=== PATIENT | female | born 1955 | race African-American/Black ===

== ENCOUNTER 2016-08-01 18:07 | Inpatient (IN) | payer MEDICARE, OTHER ==
[~2016-08-01] VITALS: Ht 172.7 cm; Wt 122.5 kg
[~2016-08-01 18:07] MED LIST: AMLODIPINE BES2.5 MG ORAL; ASPIR 8181 MG ORAL; ASPIRIN81 MG ORAL; BYSTOLIC 10MG10 MG ORAL; CALCITRIOL1 MCG/1 ML IV; COLACE100 MG ORAL; HUMALOG100 UNIT/4 SUBQ; LACTULOSE20 GM/301 ORAL; LANTUS5 UNITS SUBQ; LOSARTAN POTASS25 MG ORAL; NORCO 10/3251 EA ORAL; NORCO 5-325 TA1 EACH ORAL
[2016-08-01] MEDS ORDERED: Morphine Sulfate 4mg/ml Inj IVP ONE ×2 (18:15→19:00)
--- NOTE | 2016-08-01 18:35 | Emergency Room Report ---
History of Present Illness General Chief Complaint: Multiple Trauma/Fall Source: Patient Present Illness HPI The patient woke up on the floor after falling out of bed. She was sleeping when this happened. She was unable to move about. Her medics were finally summoned. She has chronic pain in her knees however there were tender at this time after falling on them. She lives at home. The patient has a history of gout and had been treated with prednisone in the past. She is allergic to gabapentin and other medications. She denies any localizing weakness at this time her headache. She did not hit her head. She denies any nausea vomiting or diarrhea. She had a dialysis catheter placed years ago. She did not need of dialysis. This was precautionary. Her doctor is dialysis doctor. Allergies: Coded Allergies: ALLOPURINOL (Verified Allergy, Severe, rash,itching, 12/12/14) GABAPENTIN (Verified Allergy, Severe, rash,itching, 12/12/14) LISINOPRIL (Verified Allergy, Intermediate, Rash, 12/11/14) Patient History Past Medical History: see triage record Past Surgical History: other - fistula Social History: Denies: alcohol use Social History Narrative lives at home Now: No Reviewed Nursing Documentation: PMH: Agreed, PSxH: Agreed Nursing Documentation-PMH Hx Cardiac Problems: Yes Hx Hypertension: Yes Hx Diabetes: Yes Hx Cancer: No Hx Gastrointestinal Problems: Yes Hx Neurological Problems: Yes Hx Peripheral Neuropathy: Yes Review of Systems All Other Systems: negative except mentioned in HPI Physical Exam Vital Signs Date Time Temp Pulse Resp B/P Pulse Ox O2 Delivery O2 Flow Rate FiO2 08/01/16 17:58 92 16 152/86 98 Room Air Sp02 EP Interpretation: reviewed, normal General Appearance: well appearing, no apparent distress, GCS 15, obese Head: normocephalic, atraumatic Eyes: bilateral eye EOMI, bilateral eye PERRL, bilateral eye normal inspection ENT: moist mucus membranes Neck: full range of motion, supple, no bony tend Respiratory: chest non-tender, lungs clear, normal breath sounds Cardiovascular #1: regular rate, rhythm Cardiovascular #2: 2+ radial (R) Gastrointestinal: normal inspection, normal bowel sounds, non tender, no mass, non-distended, overweight Musculoskeletal: digits/nails normal, swelling, other - bilateral knee pain with palpation and any movement - ligaments stable, tender Neurologic: alert, oriented x3, motor strength/tone normal, DTRs symmetric, sensory intact, speech normal Psychiatric: depressed affect Skin: normal color, other - tophi Medical Decision Making Diagnostic Impression: Primary Impression: Acute on chronic renal failure Additional Impressions: Knee contusion Qualified Codes: S80.01XA - Contusion of right knee, initial encounter Contusion, knee Qualified Codes: S80.02XA - Contusion of left knee, initial encounter Tophaceous gout UTI (urinary tract infection) Qualified Codes: N30.00 - Acute cystitis without hematuria DM renal manif type II ER Course Patient post fall out of bed and unable to get up. Prior weakness and gouty arthritis. Ddx: fx, contusion, polymyalgia rheumatica, strain, gout, occult infection, deconditioning, rhabdomyolysis amongst others. Emergent evaluation with labs, EKG, x-rays. Treatment with analgesia and hydration. Patient unable to ambulate and will need admission and placement. Labs c/w acute worsening of renal failure. Treat high K with keyexelate. May need dialysis (K and low bicarb). Prior creat high 2's. No fractures but still unable to ambulate. Pain improved with analgesia. Antibiotics begun for UTI. Admit Dr. Wade med. Laboratory Tests Test 08/01/16 18:30 08/01/16 19:20 White Blood Count 16.5 K/UL (4.8-10.8) H Red Blood Count 3.61 M/UL (4.20-5.40) L Hemoglobin 9.5 G/DL (12.0-16.0) L Hematocrit 31.3 % (37.0-47.0) L Mean Corpuscular Volume 87 FL (80-99) Mean Corpuscular Hemoglobin 26.4 PG (27.0-31.0) L Mean Corpuscular Hemoglobin Concent 30.4 G/DL (32.0-36.0) L Red Cell Distribution Width 14.2 % (11.6-14.8) Platelet Count 107 K/UL (150-450) L Mean Platelet Volume 8.6 FL (6.5-10.1) Neutrophils (%) (Auto) 79.7 % (45.0-75.0) H Lymphocytes (%) (Auto) 10.7 % (20.0-45.0) L Monocytes (%) (Auto) 8.2 % (1.0-10.0) Eosinophils (%) (Auto) 0.1 % (0.0-3.0) Basophils (%) (Auto) 1.3 % (0.0-2.0) Erythrocyte Sedimentation Rate 50 MM/HR (0-30) H Prothrombin Time 12.0 SEC (9.30-11.50) H Prothrombin Time INR 1.2 (0.9-1.1) H PTT 21 SEC (23-33) L Sodium Level 136 mEQ/L (135-145) Potassium Level 5.6 mEQ/L (3.4-4.9) H Chloride Level 100 mEQ/L (98-107) Carbon Dioxide Level 17 mEQ/L (20-30) L Anion Gap 19 (5-15) H Blood Urea Nitrogen 51 mg/dL (7-23) H Creatinine 4.5 mg/dL (0.5-0.9) H Estimate Glomerular Filtration Rate 12.0 mL/min (>60) Glucose Level 195 mg/dL (74-106) H Calcium Level 9.1 mg/dL (8.6-10.2) Total Bilirubin 0.9 mg/dL (0.0-1.2) Aspartate Amino Transferase (AST) 72 U/L (5-40) H Alanine Aminotransferase (ALT) 19 U/L (3-33) Alkaline Phosphatase 86 U/L (35-104) Total Protein 6.7 g/dL (6.6-8.7) Albumin 2.5 g/dL (3.5-5.2) L Globulin 4.2 g/dL Albumin/Globulin Ratio 0.5 (1.0-2.7) L Urine Color Yellow Urine Appearance Slightly cloudy Urine pH 5 (4.5-8.0) Urine Specific [place] 1.010 (1.005-1.035) Urine Protein 3+ (NEGATIVE) H Urine Glucose (UA) Negative (NEGATIVE) Urine Ketones 1+ (NEGATIVE) H Urine Occult Blood 5+ (NEGATIVE) H Urine Nitrite Negative (NEGATIVE) Urine Bilirubin Negative (NEGATIVE) Urine Urobilinogen Normal MG/DL (0.0-1.0) Urine Leukocyte Esterase 3+ (NEGATIVE) H Urine RBC 0-2 /HPF (0 - 2) Urine WBC 30-40 /HPF (0 - 2) H Urine Squamous Epithelial Cells Few /LPF (NONE/OCC) Urine Bacteria Many /HPF (NONE) H EKG Diagnostic Results Rate: normal Rhythm: NSR ST Segments: no acute changes - LVH Rhythm Strip Diag. Results EP Interpretation: yes Rhythm: NSR, no PVC's, no ectopy Chest X-Ray Diagnostic Results EP Interpretation: Yes Findings: no consolidation, no effusion, no pneumothorax, other - inc cor Number of Views: 1 Last Vital Signs Date Time Temp Pulse Resp B/P Pulse Ox O2 Delivery O2 Flow Rate FiO2 08/01/16 17:58 92 16 152/86 98 Room Air Status: improved Disposition: ADMITTED INPATIENT Condition: Serious Vahe Coronado M.D. Aug 01, 2016 18:35
[2016-08-01] MEDS ORDERED: Morphine Sulfate 4mg/ml Inj IM ONE (18:45)
[2016-08-01 18:55] LABS: BASOPHILS % (AUTO) 1.3 % (0.0-2.0); EOSINOPHILS % (AUTO) 0.1 % (0.0-3.0); LYMPHOCYTES % (AUTO) 10.7 % (20.0-45.0); MEAN CORPUSCULAR HEMOGLOBIN 26.4 PG (27.0-31.0); MEAN CORPUSCULAR HGB CONC 30.4 G/DL (32.0-36.0); MEAN CORPUSCULAR VOLUME 87 FL (80-99); MEAN PLATELET VOLUME 8.6 FL (6.5-10.1); MONOCYTES % (AUTO) 8.2 % (1.0-10.0); NEUTROPHILS % (AUTO) 79.7 % (45.0-75.0); PLATELET COUNT 107 K/UL (150-450); RED BLOOD COUNT 3.61 M/UL (4.20-5.40); RED CELL DISTRIBUTION WIDTH 14.2 % (11.6-14.8); WHITE BLOOD COUNT 16.5 K/UL (4.8-10.8)
[2016-08-01 19:01] LABS: INR 1.2 (0.9-1.1)
[2016-08-01 19:08] LABS: ALBUMIN/GLOBULIN RATIO 0.5 (1.0-2.7); CALCIUM 9.1 mg/dL (8.6-10.2); CREATININE 4.5 mg/dL (0.5-0.9); POTASSIUM 5.6 mEQ/L (3.4-4.9); TOTAL PROTEIN 6.7 g/dL (6.6-8.7)
[2016-08-01 19:49] VITALS: BP 152/75
[2016-08-01] MEDS ORDERED: PREDNISONE2.5 MG ORAL (19:55)
[2016-08-01 19:59] LABS: ERYTHROCYTE SEDIMENTATION RATE 50 MM/HR (0-30)
[2016-08-01 20:05] LABS: APPEARANCE,URINE SLIGHTLY CLOUDY; KETONES,URINE 1+ (NEGATIVE); LEUKOCYTE ESTERASE ,URINE 3+ (NEGATIVE); NITRITE,URINE NEGATIVE (NEGATIVE); PH,URINE 5 (4.5-8.0); PROTEIN,URINE 3+ (NEGATIVE); UROBILINOGEN,URINE NORMAL MG/DL (0.0-1.0)
[2016-08-01] MEDS ORDERED: HYDROmorphone 1mg/ml Carpuject IVP ONE (20:15)
[2016-08-01] MEDS ORDERED: Sodium Polystyrene Sulfonate 15gm Powder ORAL ONE (21:15)
[2016-08-01 21:31] LABS: RBC,URINE 0-2 /HPF (0 - 2)
[2016-08-01 21:32] LABS: BACTERIA,URINE MANY /HPF; SQUAMOUS EPITHELIAL CELL,UR FEW /LPF (NONE/OCC); WBC,URINE 30-40 /HPF (0 - 2)
[2016-08-01 22:02] VITALS: BP 132/80
[2016-08-01] MEDS ORDERED: Nitroglycerin Subl 0.4mg tab (Bottle Of 25) SL PRN (22:30)
[2016-08-01] MEDS ORDERED: Acetaminophen 650 MG SUPP RECTAL PRN ×2 (22:30)
[2016-08-01] MEDS ORDERED: Miralax 17gm pkt ORAL PRN (22:30)
[2016-08-01] MEDS ORDERED: Norco 10mg/325mg tab ORAL PRN (22:30)
[2016-08-01] MEDS ORDERED: Lactulose 20gm/30ml UDC ORAL PRN (22:30)
[2016-08-01] MEDS ORDERED: Norco 5mg/325mg tab ORAL PRN (22:30)
[2016-08-01] MEDS ORDERED: Zolpidem 5mg tab ORAL PRN (22:30)
[2016-08-01] MEDS ORDERED: cefTRIAXone 1 GM in NS 55 ML IVPB ONE (22:45)
[2016-08-01 23:28] VITALS: BP 133/74
[2016-08-02] VITALS (9 sets, daily range): BP systolic 108–215; BP diastolic 60–120
[2016-08-02] MEDS: NovoLOG Insulin Flexpen SUBQ SCH ×4 (06:30→21:59)
[2016-08-02] MEDS ORDERED: PREDNISONE 1 MG ONE (08:46)
[2016-08-02] MEDS: Aspirin Baby 81mg ORAL SCH (08:48)
[2016-08-02] MEDS: Docusate 100mg tablet ORAL SCH ×2 (08:48→21:57)
[2016-08-02] MEDS ORDERED: PredniSONE 20mg tab ORAL SCH (09:00)
[2016-08-02] MEDS ORDERED: Losartan 25mg tab ORAL SCH (09:00)
--- NOTE | 2016-08-02 09:34 | Diagnostic Imaging Report ---
History: Pain. Technique: Frontal, lateral, and oblique views of the left knee are provided. Comparison: No prior study is available for comparison. Findings: Exam sensitivity is diminished due to patient's body habitus. There is no evidence of acute fracture or dislocation. Moderate prominence of the tibial spines with small marginal osteophytosis is compatible with mild left knee osteoarthritis. Impression: 1. No evidence of acute fracture or dislocation. 2. Mild left knee osteoarthritis.
[2016-08-02 10:43] LABS: CALCIUM 8.6 mg/dL (8.6-10.2); CREATININE 4.7 mg/dL (0.5-0.9); GLOMERULAR FILTRATION RATE 11.4 mL/min (>60); POTASSIUM 5.7 mEQ/L (3.4-4.9)
[2016-08-02] MEDS: Norco 10mg/325mg tab ORAL SCH ×3 (12:02→21:00)
[2016-08-02] MEDS ORDERED: Cefepime 1gm vial ONE (12:16)
[2016-08-02] MEDS ORDERED: Sodium Polystyrene Sulfonate 15gm Powder ONE (12:19)
[2016-08-02] MEDS: Cefepime HCl 1 GM in D5W 55 ML IVPB SCH (12:22)
--- NOTE | 2016-08-02 18:45 | Cardiology Report ---
APPROVED REPORT EKG Measurement Heart [id number] Normal sinus rhythm Moderate voltage criteria for LVH, may be normal variant Nonspecific ST and T wave abnormality Abnormal ECG
[2016-08-02] MEDS: Heparin 5000 units/ml inj SUBQ SCH (21:00)
[2016-08-02] MEDS: Levemir Flexpen SUBQ SCH (21:00)
--- NOTE | 2016-08-02 21:08 | History and Physical Report ---
DATE OF ADMISSION: 08/02/2016 CHIEF COMPLAINT AND REASON FOR HOSPITALIZATION: The patient admitted with hyperkalemia, azotemia, falls, and unable to walk. HISTORY OF PRESENT ILLNESS: The patient has been diabetic since 1996 insulin-dependent, history of obesity, gout, arthritis, and chronic kidney disease likely stage V. She states she has not had very much to eat or drink since three days prior to admission. She is increasingly weak and had a ground level fall at home and unable to get up and came to the emergency room. The patient has had hyperkalemia and azotemia. She is complaining of severe pain in the elbows and knees and unable to walk. Usually, she can walk to the bathroom and move about . PAST SURGICAL HISTORY: Left arm AV fistula, which failed right arm AV fistula and two section. MEDICATIONS: At home include amlodipine, aspirin, Bystolic, calcitriol, Colace, [place], insulin, lactulose, losartan, and prednisone. HABITS: She is a nondrinker and nonsmoker. SOCIAL HISTORY: She lives alone. She has a neighbor, who assists her. SYSTEM REVIEW: HEENT: Vision hearing is well-preserved. ENDOCRINE: History of obesity, diabetes, and hypothyroidism. PULMONARY: No asthma, TB, or chronic cough. CARDIAC: No angina or NV. There is a history of hypertension. GI: History of anorexia and poor oral intake the past few days and intermittent mild gastritis. GENITOURINARY: Denies dysuria or hematuria. Guallpa catheter was placed in the emergency room. MUSCULOSKELETAL: Gout and pain as above. NEUROLOGIC: No CVA, syncope, or seizures. PHYSICAL EXAMINATION: GENERAL: The patient is alert lady seen in the emergency room and moderately obese. VITAL SIGNS: Pulse 98, respirations 19, blood pressure 128/68, pulse oximetry 96% on room air, and temperature 98.2 degrees. HEENT: Sclerae are nonicteric. Ocular motions intact in all directions. Oral mucosa slightly dry. NECK: No adenopathy or thyroid enlargement. LUNGS: Clear. HEART: Regular rhythm. No murmur. ABDOMEN: Obese and soft. No organomegaly or tenderness. EXTREMITIES: Extremities show an AV fistula in the right upper arm. She has pain in the elbows, knees, and hands bilaterally. There is no hot joints ,but there is some hand deformities and arthritic changes in all of these joints. NEUROLOGIC: She is alert and oriented. Cranial nerves are intact. PERTINENT LABORATORIES: White count 16.5 and hemoglobin is 9.5. Sodium 138, potassium 5.7, BUN 15, and creatinine 4.7. Calcium 8.6. AST is 72. Urine shows a 30 to 40 white cells per high-power field and 3+ protein. IMPRESSION: 1. Ground-level fall. 2. Inability to ambulate. 3. gout. 4. Severe osteoarthritis. 5. Morbid obesity. 6. Hyperkalemia. 7. Chronic kidney disease stage V. 8. Dehydration . 9. Adult onset diabetes with diabetic nephropathy. 10. Pyuria likely urinary tract infection. 11. Failure to thrive due to these multiple medical problems. PLAN: The patient will be hydrated and treated for hyperkalemia and urinary tract infection. Pain management for gout . Physical therapy and occupational therapy. have to make a disposition and currently she is bedridden. Sourav Wade M.D. DR: Beatriz JOB#: [id number] CC:
[2016-08-03] VITALS (7 sets, daily range): BP systolic 105–143; BP diastolic 57–77
[2016-08-03] MEDS: Norco 10mg/325mg tab ORAL SCH ×6 (01:00→21:06)
[2016-08-03] MEDS: NovoLOG Insulin Flexpen SUBQ SCH ×4 (06:08→21:13)
[2016-08-03 08:25] LABS: ALBUMIN/GLOBULIN RATIO 0.5 (1.0-2.7); CALCIUM 8.4 mg/dL (8.6-10.2); GLOMERULAR FILTRATION RATE 10.7 mL/min (>60); PHOSPHORUS 4.2 mg/dL (2.5-4.8); POTASSIUM 4.9 mEQ/L (3.4-4.9); URIC ACID 11.1 mg/dL (3.0-7.5)
[2016-08-03 08:31] LABS: BASOPHILS % (AUTO) 0.3 % (0.0-2.0); EOSINOPHILS % (AUTO) 0.2 % (0.0-3.0); LYMPHOCYTES % (AUTO) 10.6 % (20.0-45.0); MEAN CORPUSCULAR HEMOGLOBIN 26.6 PG (27.0-31.0); MEAN CORPUSCULAR VOLUME 86 FL (80-99); MEAN PLATELET VOLUME 7.3 FL (6.5-10.1); MONOCYTES % (AUTO) 8.1 % (1.0-10.0); NEUTROPHILS % (AUTO) 80.7 % (45.0-75.0); PLATELET COUNT 148 K/UL (150-450); RED BLOOD COUNT 3.23 M/UL (4.20-5.40); RED CELL DISTRIBUTION WIDTH 14.5 % (11.6-14.8); WHITE BLOOD COUNT 14.1 K/UL (4.8-10.8)
--- NOTE | 2016-08-03 08:36 | Diagnostic Imaging Report ---
Clinical history: Chest pain. Technique: Portable AP chest radiograph was obtained. Comparison: 12/13/14. Findings: There is stable mild cardiomegaly with scattered interstitial opacities suggesting mild interstitial edema. Lung volumes are low. No focal consolidation is identified. There is no pleural effusion or pneumothorax. The bony thorax is unremarkable. Impression: 1. Mild cardiomegaly with probable mild interstitial edema. 2. Low lung volumes. No evidence of pneumonia.
--- NOTE | 2016-08-03 08:36 | Diagnostic Imaging Report ---
History: Pain. Technique: Frontal, lateral, and oblique views of the right knee are provided. Comparison: No prior study is available for comparison. Findings: Exam sensitivity is diminished due to patient's body habitus. There is no evidence of acute fracture or dislocation. Mild prominence of the tibial spines with small marginal osteophytosis is compatible with mild right knee osteoarthritis. A small effusion may be present. Impression: 1. No evidence of acute fracture or dislocation. 2. Suspected small effusion. Mild right knee osteoarthritis noted.
[2016-08-03] MEDS: PredniSONE 5mg tab ORAL SCH (08:37)
[2016-08-03] MEDS: Aspirin Baby 81mg ORAL SCH (08:37)
[2016-08-03] MEDS: Docusate 100mg tablet ORAL SCH ×2 (08:38→21:00)
[2016-08-03] MEDS: Heparin 5000 units/ml inj SUBQ SCH ×2 (09:00→20:57)
[2016-08-03] MEDS: Cefepime HCl 1 GM in D5W 55 ML IVPB SCH (11:55)
--- NOTE | 2016-08-03 15:45 | General Progress Note ---
Assessment/Plan Problem List: (1) Hyperkalemia ICD Codes: E87.5 - Hyperkalemia SNOMED: 58616390 (2) CKD (chronic kidney disease) stage 5, GFR less than 15 ml/min ICD Codes: N18.5 - Chronic kidney disease, stage 5 SNOMED: 126938585 (3) Pain ICD Codes: R52 - Pain, unspecified SNOMED: 57498040 (4) severe pain,gout (5) DM renal manif type II ICD Codes: E11.29 - DM renal manif type II SNOMED: 39946646 (6) Tophaceous gout ICD Codes: M1A.9XX1 - Tophaceous gout SNOMED: 25633231 (7) UTI (urinary tract infection) ICD Codes: N39.0 - Urinary tract infection, site not specified SNOMED: 84180303 (8) Metabolic acidosis ICD Codes: E87.2 - Acidosis SNOMED: 69536344 Assessment/Plan continue hydration iv cefepime, PT, bicitra, epogen Subjective Constitutional: Reports: fever, weakness HEENT: Reports: no symptoms Cardiovascular: Reports: no symptoms Respiratory: Reports: no symptoms Gastrointestinal/Abdominal: Reports: no symptoms Genitourinary: Reports: no symptoms Neurologic/Psychiatric: Reports: no symptoms Endocrine: Reports: no symptoms Allergies: Coded Allergies: ALLOPURINOL (Verified Allergy, Severe, rash,itching, 12/12/14) GABAPENTIN (Verified Allergy, Severe, rash,itching, 12/12/14) LISINOPRIL (Verified Allergy, Intermediate, Rash, 12/11/14) Subjective generalized pain Objective Last 24 Hour Vital Signs Date Time Temp Pulse Resp B/P Pulse Ox O2 Delivery O2 Flow Rate FiO2 08/03/16 12:00 99.0 93 20 143/69 98 Room Air 08/03/16 09:24 100.4 101 19 105/57 100 Room Air 08/03/16 08:39 101 105/57 08/03/16 07:35 100.4 102 18 129/74 98 Room Air 08/03/16 04:00 101.8 104 20 139/77 97 Room Air 08/03/16 00:00 100.0 100 20 126/73 96 Room Air 08/02/16 20:00 100.4 98 20 128/65 94 Room Air 08/02/16 19:00 98.3 08/02/16 16:54 98.2 99 14 126/72 95 Room Air 08/02/16 16:54 98.3 98 15 132/75 97 Room Air Intake and Output 08/02/16 08/03/16 19:00 07:00 Intake Total 480 ml Output Total 550 ml Balance -70 ml Intake Oral 480 ml Output Urine Total 550 ml # Voids 1 Laboratory Tests 08/03/16 06:42: White Blood Count 14.1H, Red Blood Count 3.23L, Hemoglobin 8.6L, Hematocrit 27.7L, Mean Corpuscular Volume 86, Mean Corpuscular Hemoglobin 26.6L, Mean Corpuscular Hemoglobin Concent 31.0L, Red Cell Distribution Width 14.5, Platelet Count 148L, Mean Platelet Volume 7.3, Neutrophils (%) (Auto) 80.7H, Lymphocytes (%) (Auto) 10.6L, Monocytes (%) (Auto) 8.1, Eosinophils (%) (Auto) 0.2, Basophils (%) (Auto) 0.3, Sodium Level 137, Potassium Level 4.9, Chloride Level 100, Carbon Dioxide Level 17L, Anion Gap 20H, Blood Urea Nitrogen 61H, Creatinine 5.0H, Estimat Glomerular Filtration Rate 10.7, Glucose Level 171H, Uric Acid 11.1H, Calcium Level 8.4L, Phosphorus Level 4.2, Total Bilirubin 0.6, Aspartate Amino Transf (AST/SGOT) 39, Alanine Aminotransferase (ALT/SGPT) 17, Alkaline Phosphatase 82, Total Protein 6.0L, Albumin 2.1L, Globulin 3.9, Albumin /Globulin Ratio 0.5L Height (Feet): 5 Height (Inches): 8.00 Weight (Pounds): 270 General Appearance: no apparent distress, alert, morbidly obese EENT: normal ENT inspection Neck: normal alignment, supple Cardiovascular: regular rhythm, regularly irregular Respiratory/Chest: normal breath sounds Abdomen: non tender Extremities: other - tophi hands, djd knees Edema: no edema noted Arm (L), no edema noted Arm (R), no edema noted Leg (L), no edema noted Leg (R), no edema noted Pedal (L), no edema noted Pedal (R), no edema noted Generalized Skin: normal pigmentation NEGRO SMITH Aug 03, 2016 15:45
[2016-08-03] MEDS: Sodium Citrate 30ml ORAL SCH ×2 (18:49→23:58)
[2016-08-03] MEDS: Epogen (for ESRD on dialysis) SUBQ SCH (21:06)
[2016-08-03] MEDS: Levemir Flexpen SUBQ SCH (21:15)
[2016-08-04] VITALS: BP 128/78
[2016-08-04] MEDS: Norco 10mg/325mg tab ORAL SCH ×6 (01:07→23:15)
[2016-08-04 04:00] VITALS: BP 118/62
[2016-08-04] MEDS: Sodium Citrate 30ml ORAL SCH ×4 (06:57→23:15)
[2016-08-04] MEDS: NovoLOG Insulin Flexpen SUBQ SCH ×4 (06:58→23:15)
[2016-08-04 08:00] VITALS: BP 142/75
[2016-08-04 08:22] LABS: BASOPHILS % (AUTO) 0.5 % (0.0-2.0); EOSINOPHILS % (AUTO) 0.3 % (0.0-3.0); LYMPHOCYTES % (AUTO) 14.1 % (20.0-45.0); MEAN CORPUSCULAR HEMOGLOBIN 26.5 PG (27.0-31.0); MEAN CORPUSCULAR HGB CONC 30.5 G/DL (32.0-36.0); MEAN CORPUSCULAR VOLUME 87 FL (80-99); MEAN PLATELET VOLUME 7.3 FL (6.5-10.1); NEUTROPHILS % (AUTO) 76.1 % (45.0-75.0); PLATELET COUNT 199 K/UL (150-450); RED BLOOD COUNT 4.01 M/UL (4.20-5.40); RED CELL DISTRIBUTION WIDTH 14.4 % (11.6-14.8); WHITE BLOOD COUNT 15.8 K/UL (4.8-10.8)
[2016-08-04 08:40] LABS: CALCIUM 9.1 mg/dL (8.6-10.2); CREATININE 5.5 mg/dL (0.5-0.9); GLOMERULAR FILTRATION RATE 9.6 mL/min (>60); POTASSIUM 4.9 mEQ/L (3.4-4.9)
[2016-08-04] MEDS: Aspirin Baby 81mg ORAL SCH (09:01)
[2016-08-04] MEDS: PredniSONE 5mg tab ORAL SCH (09:02)
[2016-08-04] MEDS: Docusate 100mg tablet ORAL SCH ×2 (09:02→23:15)
[2016-08-04] MEDS: Heparin 5000 units/ml inj SUBQ SCH ×2 (09:07→23:15)
[2016-08-04] MEDS ORDERED: Cefepime HCl 0.5 GM in D5W 55 ML IVPB SCH (12:00)
[2016-08-04 12:07] VITALS: BP 144/78
[2016-08-04 16:31] VITALS: BP 117/59
--- NOTE | 2016-08-04 19:54 | General Progress Note ---
Assessment/Plan Problem List: (1) Hyperkalemia ICD Codes: E87.5 - Hyperkalemia SNOMED: 98690507 (2) CKD (chronic kidney disease) stage 5, GFR less than 15 ml/min ICD Codes: N18.5 - Chronic kidney disease, stage 5 SNOMED: 199184122 (3) Pain ICD Codes: R52 - Pain, unspecified SNOMED: 35011344 (4) severe pain,gout (5) DM renal manif type II ICD Codes: E11.29 - DM renal manif type II SNOMED: 43825829 (6) Tophaceous gout ICD Codes: M1A.9XX1 - Tophaceous gout SNOMED: 06848540 (7) UTI (urinary tract infection) ICD Codes: N39.0 - Urinary tract infection, site not specified SNOMED: 04165627 (8) Metabolic acidosis ICD Codes: E87.2 - Acidosis SNOMED: 00198321 Assessment/Plan continue hydration iv cefepime,change to cefzolin for klebsiella, hallucinations will contact psych, PT, bicitra, epogen, may need dialysis Subjective Constitutional: Reports: other, weakness HEENT: Reports: no symptoms Cardiovascular: Reports: no symptoms Respiratory: Reports: no symptoms Gastrointestinal/Abdominal: Reports: no symptoms Genitourinary: Reports: burning, incontinence Neurologic/Psychiatric: Reports: pre-existing deficit Endocrine: Reports: no symptoms Hematologic/Lymphatic: Reports: anemia Allergies: Coded Allergies: ALLOPURINOL (Verified Allergy, Severe, rash,itching, 12/12/14) GABAPENTIN (Verified Allergy, Severe, rash,itching, 12/12/14) LISINOPRIL (Verified Allergy, Intermediate, Rash, 12/11/14) Subjective generalized pain Objective Last 24 Hour Vital Signs Date Time Temp Pulse Resp B/P Pulse Ox O2 Delivery O2 Flow Rate FiO2 08/04/16 16:31 98.2 87 19 117/59 97 Room Air 08/04/16 12:07 97.1 86 20 144/78 95 Room Air 08/04/16 09:03 95 142/75 08/04/16 08:00 96.9 95 20 142/75 99 Room Air 08/04/16 04:00 97.5 86 19 118/62 99 Room Air 08/04/16 00:00 97.5 82 22 128/78 98 Room Air 08/03/16 20:32 98.1 92 18 130/70 96 Room Air Intake and Output 08/03/16 08/04/16 19:00 07:00 Intake Total 1545 ml 615 ml Output Total 1 ml Balance 1545 ml 614 ml Intake Oral 240 ml 240 ml IV Total 1305 ml 375 ml Output Urine Total 1 ml # Voids 3 2 Laboratory Tests 08/04/16 07:25: White Blood Count 15.8H, Red Blood Count 4.01L, Hemoglobin 10.6L, Hematocrit 34.9L, Mean Corpuscular Volume 87, Mean Corpuscular Hemoglobin 26.5L, Mean Corpuscular Hemoglobin Concent 30.5L, Red Cell Distribution Width 14.4, Platelet Count 199, Mean Platelet Volume 7.3, Neutrophils (%) (Auto) 76.1H, Lymphocytes (%) (Auto) 14.1L, Monocytes (%) (Auto) 9.0, Eosinophils (%) (Auto) 0.3, Basophils (%) (Auto) 0.5, Sodium Level 142, Potassium Level 4.9, Chloride Level 100, Carbon Dioxide Level 18L, Anion Gap 24H, Blood Urea Nitrogen 70H, Creatinine 5.5H, Estimat Glomerular Filtration Rate 9.6, Glucose Level 128H, Calcium Level 9.1, Iron Level 11L, Total Iron Binding Capacity 194L, Percent Iron Saturation 6L, Unsaturated Iron Binding 183, Ferritin 305H Height (Feet): 5 Height (Inches): 8.00 Weight (Pounds): 270 General Appearance: no apparent distress, morbidly obese EENT: normal ENT inspection Neck: normal alignment Cardiovascular: normal rate Respiratory/Chest: lungs clear Abdomen: non tender Edema: moderate edema Neurologic: 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
[2016-08-04 20:00] VITALS: BP 127/70
[2016-08-04] MEDS: Levemir Flexpen SUBQ SCH (23:15)
[2016-08-05] VITALS: BP 120/85
[2016-08-05] MEDS: Norco 10mg/325mg tab ORAL SCH ×6 (01:00→20:38)
[2016-08-05 04:00] VITALS: BP 124/71
[2016-08-05] MEDS: NovoLOG Insulin Flexpen SUBQ SCH ×4 (06:21→20:52)
[2016-08-05] MEDS: Sodium Citrate 30ml ORAL SCH ×4 (06:27→22:13)
[2016-08-05 07:36] LABS: BASOPHILS % (AUTO) 0.7 % (0.0-2.0); EOSINOPHILS % (AUTO) 0.2 % (0.0-3.0); LYMPHOCYTES % (AUTO) 7.9 % (20.0-45.0); MEAN CORPUSCULAR HEMOGLOBIN 26.2 PG (27.0-31.0); MEAN CORPUSCULAR HGB CONC 30.5 G/DL (32.0-36.0); MEAN CORPUSCULAR VOLUME 86 FL (80-99); MEAN PLATELET VOLUME 6.9 FL (6.5-10.1); MONOCYTES % (AUTO) 7.9 % (1.0-10.0); NEUTROPHILS % (AUTO) 83.4 % (45.0-75.0); PLATELET COUNT 215 K/UL (150-450); RED BLOOD COUNT 3.48 M/UL (4.20-5.40); RED CELL DISTRIBUTION WIDTH 14.2 % (11.6-14.8); WHITE BLOOD COUNT 10.1 K/UL (4.8-10.8)
[2016-08-05 07:55] LABS: ALBUMIN/GLOBULIN RATIO 0.5 (1.0-2.7); CREATININE 5.5 mg/dL (0.5-0.9); GLOMERULAR FILTRATION RATE 9.6 mL/min (>60); PHOSPHORUS 6.5 mg/dL (2.5-4.8); POTASSIUM 4.7 mEQ/L (3.4-4.9); TOTAL PROTEIN 6.9 g/dL (6.6-8.7)
[2016-08-05 08:00] VITALS: BP 107/54
[2016-08-05] MEDS: PredniSONE 5mg tab ORAL SCH (08:49)
[2016-08-05] MEDS: Aspirin Baby 81mg ORAL SCH (08:50)
[2016-08-05] MEDS: Heparin 5000 units/ml inj SUBQ SCH ×2 (08:56→20:49)
[2016-08-05] MEDS ORDERED: Lidocaine 1% Plain 30 ml INJ ONE (09:00)
[2016-08-05] MEDS: Docusate 100mg tablet ORAL SCH ×2 (09:00→20:51)
[2016-08-05] MEDS ORDERED: Heparin 2000 units/Ns 1000ml INJ ONE (09:00)
[2016-08-05] MEDS ORDERED: Sodium Bicarbonate 8.4% 50ml Inj IV ONE (09:00)
[2016-08-05] MEDS: Nystatin Powder 100,000 units/gm 15gm TOPIC SCH ×3 (10:56→18:29)
[2016-08-05 12:00] VITALS: BP 134/64
[2016-08-05] MEDS ORDERED: Nystatin Powder 100,000 units/gm 15gm TOPIC SCH (14:30)
[2016-08-05 16:00] VITALS: BP 101/69
--- NOTE | 2016-08-05 16:20 | Wound Care Consultation ---
Wound Assessment Wound Assessment #1: Wound Present on Admission: Yes New Wound: No Status Change of Wound: No Wound Location Body Site Modif: upper, medial Wound Location Body Site: thigh Wound Type: blister - open and intact Marley Test: Does not Marley Wound Thickness: Partial Thickness Wound Drainage Description: Serosanguineous Wound Drainage Amount: Scant Wound Drainage Odor: None/Absent Wound General Appearance: Reddened Wound Assessment #2: Wound Number: #2 Wound Present on Admission: Yes New Wound: No Status Change of Wound: No Wound Location Body Site Modif: left, anterior Wound Location Body Site: toe - 2nd Wound Type: scab Marley Test: Does not Marley Edema Degree: 4+ marked deep indentation Wound Thickness: Full Thickness Wound Length: 1.0 Wound Width: 1.5 Wound Depth: utd Percent of Wound Bed Yellow/Wh: 100 Wound Drainage Amount: None Wound Drainage Odor: None/Absent Tissue Surrounding Wound: Indurated Wound General Appearance: Asymptomatic Wound Comment #1 Left and right upper inner thigh open and intact blisters #2 Left 2nd anterior toe with dry scab #3 Left and right elbow with dry scabs Recommendation -Local wound care per protocol for intact and open blisters -Keep clean and dry -Turn and reposition -Offload both heels -Elevate both legs -Optimize nutrition -Assess and f/u with MD for any changes DAY MARKS RN Aug 05, 2016 16:20
--- NOTE | 2016-08-05 17:24 | Consultation ---
History of Present Illness General Date patient seen: Aug 05, 2016 Time patient seen: 17:24 Chief Complaint: Multiple Trauma/Fall Referring physician: Dr. Wade Reason for Consultation: med amada Present Illness HPI 61 yo female with pmh of HTN, DM2 on insulin, CKD stage 5 (not on HDyt), anemia of chronic disese, tophaceous gout, morbit obesity who presnts with generlized weakness and fall. Pt states she woke up on the floor after falling out of bed. She was sleeping when this happened. She was unable to move about. Her medics were finally summoned. She has chronic pain in her knees but states pain increased after fall. Also c/o R arm pain after fall. She lives at home alone. She denies any localizing weakness at this time her headache. She did not hit her head. She denies any nausea vomiting or diarrhea. At baseline pt states she can walk only short distances like from her bedroom to her bathroom. Pt found to be hyperkalemic and azotemic. Pt was seen by nephrology an initiated on dialysis today. Pt noted to have periods of confusion, delusions. Psych was consulted. She was also found to have a UTI and started on cefepime. Cultures show Klebsiella. Allergies: Coded Allergies: ALLOPURINOL (Verified Allergy, Severe, rash,itching, 12/12/14) GABAPENTIN (Verified Allergy, Severe, rash,itching, 12/12/14) LISINOPRIL (Verified Allergy, Intermediate, Rash, 12/11/14) Medication History Scheduled Amlodipine Besylate* (Amlodipine Besylate*), 2.5 MG ORAL DAILY, (Reported) Aspirin* (Aspir 81*), 81 MG ORAL DAILY, (Reported) Aspirin* (Aspirin*), 81 MG ORAL DAILY, (Reported) Bysto (Bystolic), 10 MG ORAL BID, (Reported) Docusate Sodium* (Colace*), 200 MG ORAL QID, (Reported) Insulin Glargine (Lantus), 0 SUBQ BEDTIME, (Reported) Losartan Potassium* (Losartan Potassium*), 25 MG ORAL DAILY, (Reported) Prednisone* (Prednisone*), 2.5 MG ORAL DAILY, (Reported) Scheduled PRN Hydrocodone Bit/Acetaminophen 5-325* ([place] 5-325*), 1 TAB ORAL Q4H PRN for moderate pain, (Reported) Hydrocodone/Acetaminophen (Hydrocodon-Acetaminophn 10-325), 1 TAB ORAL Q4H PRN for For Pain, (Reported) Hydrocodone/Acetaminophen (Hydrocodon-Acetaminophn 10-325), 1 TAB ORAL for severe pain, (Reported) Lactulose (Lactulose*), 30 ML ORAL DAILY PRN for Constipation, (Reported) Miscellaneous Medications Calcitriol (Calcitriol*), 1 MCG IV, (Reported) Insulin Lispro (Humalog), 0 SUBQ, (Reported) Patient History History Provided By: Patient, Medical Record, PMD Healthcare decision maker N Resuscitation status Full Code Advanced Directive on File Past Medical/Surgical History Past Medical/Surgical History: (1) CKD (chronic kidney disease) stage 5, GFR less than 15 ml/min (2) Tophaceous gout (3) Morbid obesity (4) DM renal manif type II Family History Family History: (1) No significant family history Social History Social History: (1) Lives alone without help available Review of Systems Constitutional: Reports: weakness Eye: Reports: no symptoms Cardiovascular: Reports: no symptoms Gastrointestinal: Reports: no symptoms Genitourinary: Reports: no symptoms Musculoskeletal: Reports: gout, joint pain, joint swelling, muscle pain, muscle stiffness Skin: Reports: no symptoms Psychiatric: Reports: anxiety, depressed feelings Neurological: Reports: no symptoms Endocrine: Reports: no symptoms Hematologic/Lymphatic: Reports: no symptoms All Other Systems: negative except mentioned in HPI Physical Exam Physical Exam Narrative General: alert, cooperative, no distress, appears stated age, obese Head: normocephalic, without obvious abnormality, atraumatic Eyes: conjunctivae/corneas clear. PERRL, EOM's intact Throat: lips, mucosa, and tongue normal. MMM Neck: supple, symmetrical, trachea midline, and no JVD Lungs: clear to auscultation bilaterally Heart: regular rate and rhythm, S1, S2 normal, no murmur, click, rub or gallop Abdomen: soft, non-tender, non-distended, bowel sounds normal; no masses or organomegaly Extremities: extremities normal, atraumatic, no cyanosis or edema AV fistula in RUE +TTP of elbows, knees, hands b/l. Hand w/ arthritic chanes. Pulses: 2+ and symmetric Skin: skin color, texture, turgor normal; no rashes or lesions Neurologic: grossly normal, no focal deficits Last 24 Hour Vital Signs Date Time Temp Pulse Resp B/P Pulse Ox O2 Delivery O2 Flow Rate FiO2 08/05/16 14:06 97.9 08/05/16 12:00 98.0 88 20 134/64 97 Room Air 08/05/16 08:49 104 124/71 08/05/16 08:00 98.4 97 18 107/54 98 Room Air 08/05/16 04:00 97.9 104 22 124/71 100 Room Air 08/05/16 00:00 98.2 91 22 120/85 98 Room Air 08/04/16 20:00 98.2 90 19 127/70 98 Room Air Intake and Output 08/04/16 08/05/16 19:00 07:00 Intake Total 180 ml 1340 ml Balance 180 ml 1340 ml Intake Oral 180 ml 240 ml IV Total 1100 ml # Voids 3 Laboratory Tests Test 08/05/16 06:40 White Blood Count 10.1 K/UL (4.8-10.8) Red Blood Count 3.48 M/UL (4.20-5.40) L Hemoglobin 9.1 G/DL (12.0-16.0) L Hematocrit 29.9 % (37.0-47.0) L Mean Corpuscular Volume 86 FL (80-99) Mean Corpuscular Hemoglobin 26.2 PG (27.0-31.0) L Mean Corpuscular Hemoglobin Concent 30.5 G/DL (32.0-36.0) L Red Cell Distribution Width 14.2 % (11.6-14.8) Platelet Count 215 K/UL (150-450) Mean Platelet Volume 6.9 FL (6.5-10.1) Neutrophils (%) (Auto) 83.4 % (45.0-75.0) H Lymphocytes (%) (Auto) 7.9 % (20.0-45.0) L Monocytes (%) (Auto) 7.9 % (1.0-10.0) Eosinophils (%) (Auto) 0.2 % (0.0-3.0) Basophils (%) (Auto) 0.7 % (0.0-2.0) Sodium Level 141 mEQ/L (135-145) Potassium Level 4.7 mEQ/L (3.4-4.9) Chloride Level 100 mEQ/L (98-107) Carbon Dioxide Level 20 mEQ/L (20-30) Anion Gap 21 (5-15) H Blood Urea Nitrogen 78 mg/dL (7-23) H Creatinine 5.5 mg/dL (0.5-0.9) H Estimat Glomerular Filtration Rate 9.6 mL/min (>60) Glucose Level 141 mg/dL (74-106) H Calcium Level 9.0 mg/dL (8.6-10.2) Phosphorus Level 6.5 mg/dL (2.5-4.8) H Total Bilirubin 0.7 mg/dL (0.0-1.2) Aspartate Amino Transf (AST/SGOT) 35 U/L (5-40) Alanine Aminotransferase (ALT/SGPT) 20 U/L (3-33) Alkaline Phosphatase 125 U/L (35-104) H Total Protein 6.9 g/dL (6.6-8.7) Albumin 2.3 g/dL (3.5-5.2) L Globulin 4.6 g/dL Albumin/Globulin Ratio 0.5 (1.0-2.7) L Hepatitis B Surface Antigen Pending Hepatitis B Surface Antibody Pending Hepatitis C Antibody Pending HIV (1&2) Antibody Rapid Negative (NEGATIVE) Height (Feet): 5 Height (Inches): 8.00 Weight (Pounds): 270 Medications Current Medications Medications (Trade) Dose Ordered Sig/Linnea Route PRN Reason Start Time Stop Time Status Last Admin Dose Admin Acetaminophen/ Hydrocodone Bitart ([place] 10/325) 1 ea Q4HR ORAL 08/02/16 14:30 08/09/16 14:29 08/05/16 16:25 Amlodipine Besylate (Norvasc) 10 mg DAILY ORAL 08/02/16 09:00 09/01/16 08:59 08/05/16 08:49 Aspirin (ASA) 81 mg DAILY ORAL 08/02/16 09:00 09/01/16 08:59 08/05/16 08:50 Dextrose (Dextrose 50%) STAT PRN IV Hypoglycemia 08/01/16 22:30 08/31/16 22:29 Docusate Sodium (Colace) 100 mg EVERY 12 HOURS ORAL 08/02/16 09:00 09/01/16 08:59 08/04/16 23:15 Epoetin Silvino (Procrit (for ESRD on dialysis)) 10,000 units WED-WED-WED SUBQ 08/03/16 21:00 09/02/16 20:59 08/03/16 21:06 Heparin Sodium (Porcine) (Heparin 5000 units/ml) 5,000 units EVERY 12 HOURS SUBQ 08/02/16 21:00 09/01/16 20:59 08/05/16 08:56 Heparin Sodium (Porcine) (Heparin Sod 1000 units/ml 10ml) 2,000 unit ONCE PRN IV FOR HD USE ONLY 08/06/16 14:45 08/06/16 23:59 Insulin Aspart (NovoLOG) BEFORE MEALS AND HS SUBQ 08/02/16 06:30 09/01/16 06:29 08/05/16 16:34 Insulin Detemir (Levemir) 10 units BEDTIME SUBQ 08/02/16 21:00 09/01/16 20:59 08/04/16 23:15 Lactulose (Cephulac) 20 gm DAILY PRN ORAL Constipation 08/01/16 22:30 08/31/16 22:29 Nebivolol (Bystolic) 5 mg BID ORAL 08/02/16 09:00 09/01/16 08:59 08/05/16 09:59 Nitroglycerin (Ntg) 0.4 mg Q5M X 3 DOSES PRN SL Prn Chest Pain 08/01/16 22:30 08/31/16 22:29 Nystatin 1 applic 1 applic THREE TIMES A DAY TOPIC 08/05/16 09:00 09/04/16 08:59 08/05/16 13:07 Ondansetron HCl (Zofran) 4 mg Q6H PRN IVP Nausea & Vomiting 08/01/16 22:30 08/31/16 22:29 Polyethylene Glycol (Miralax) 17 gm HSPRN PRN ORAL Constipation 08/01/16 22:30 08/31/16 22:29 Prednisone (predniSONE) 5 mg DAILY ORAL 08/03/16 09:00 09/02/16 08:59 08/05/16 08:49 Ranitidine HCl (Zantac) 300 mg DAILY ORAL 08/02/16 09:00 09/01/16 08:59 08/05/16 08:49 Sodium Chloride 1,000 ml @ 100 mls/hr Q10H IVLG 08/04/16 20:30 09/03/16 20:29 08/04/16 20:30 Sodium Chloride (Sodium Chloride 1000ml bag) 1,000 ml @ 500 mls/hr Q2H PRN IVLG sbp<90 during hd 08/06/16 14:34 08/06/16 23:59 Sodium Citrate (Bicitra) 30 ml EVERY 6 HOURS ORAL 08/03/16 18:00 09/02/16 17:59 08/05/16 12:26 Zolpidem Tartrate (Ambien) 5 mg HSPRN PRN ORAL Insomnia 08/01/16 22:30 08/31/16 22:29 Assessment/Plan Problem List: (1) Toxic metabolic encephalopathy ICD Codes: G92 - Toxic encephalopathy SNOMED: 177496081 (2) severe pain,gout (3) Hyperkalemia ICD Codes: E87.5 - Hyperkalemia SNOMED: 52773218 (4) CKD (chronic kidney disease) stage 5, GFR less than 15 ml/min ICD Codes: N18.5 - Chronic kidney disease, stage 5 SNOMED: 363736259 (5) Metabolic acidosis ICD Codes: E87.2 - Acidosis SNOMED: 48174990 (6) UTI due to Klebsiella species ICD Codes: N39.0 - Urinary tract infection, site not specified; B96.1 - Klebsiella pneumoniae [K. pneumoniae] as the cause of diseases classified elsewhere SNOMED: 252732926483129 (7) Morbid obesity ICD Codes: E66.01 - Morbid (severe) obesity due to excess calories SNOMED: 215322859, 70932621908179 (8) Tophaceous gout ICD Codes: M1A.9XX1 - Tophaceous gout SNOMED: 92910730 (9) DM renal manif type II ICD Codes: E11.29 - DM renal manif type II SNOMED: 70506231 Status: stable Assessment/Plan Appreciate nephrology rec's Pt has been initated on HD on 08/05 via her RUE AV fistula s/p cefepime on 08/04 Start cipro 250mg BID for UTI--will treat for total of 7 days for complicated UTI Cont insulin for DM2 Cont BP meds for HTN Cont prednisone for gout--may consider increasing dose ofr possible gout flare PT/OT Psych consulted given AMS CM consulted for SNF placement, outpatient dialysis setup DC planning DVT Prophylaxis: SCD, HSQ Code Status: Full Hospital Classification Declaration: Based on this initial evaluation, and depending on the patient's clinical course, I anticipate that this patient will require hospitalization for 1-2 days for HD per renal, AMS, and close respiratory/hemodynamic monitoring. Disposition: Once the patient is stable to leave the hospital, I anticipate the patient will likely be discharged to the following environment: SNF I spent 70 minutes on this patient's case, and 38 minutes were dedicated to counseling and/or care coordination. Discussed with patient/family, nursing staff, SW/CM regarding clinical status, treatment course, and disposition planning. Time of note may not reflect time of encounter. Kameron Contreras M.D. Aug 05, 2016 17:24
[2016-08-05 20:00] VITALS: BP 118/90
[2016-08-05] MEDS: Epogen (for ESRD on dialysis) SUBQ SCH (20:39)
[2016-08-05] MEDS: Levemir Flexpen SUBQ SCH (20:49)
--- NOTE | 2016-08-05 21:30 | Nephrology Progress Note ---
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 (7) UTI (urinary tract infection) (8) Metabolic acidosis (9) Metabolic encephalopathy Plan she agrees to start dialysis, needs psych eval and dc plan Subjective Constitutional: Reports: weakness HEENT: Reports: no symptoms Genitourinary: Reports: no symptoms Neurologic/Psychiatric: Reports: weakness Objective Objective Last 24 Hour Vital Signs Date Time Temp Pulse Resp B/P Pulse Ox O2 Delivery O2 Flow Rate FiO2 08/05/16 19:32 Room Air 08/05/16 16:00 97.0 88 16 101/69 95 Room Air 08/05/16 14:06 97.9 08/05/16 12:00 98.0 88 20 134/64 97 Room Air 08/05/16 08:49 104 124/71 08/05/16 08:00 98.4 97 18 107/54 98 Room Air 08/05/16 04:00 97.9 104 22 124/71 100 Room Air 08/05/16 00:00 98.2 91 22 120/85 98 Room Air Intake and Output 08/04/16 08/05/16 19:00 07:00 Intake Total 180 ml 1340 ml Balance 180 ml 1340 ml Intake Oral 180 ml 240 ml IV Total 1100 ml # Voids 3 Laboratory Tests 08/05/16 06:40: White Blood Count 10.1, Red Blood Count 3.48L, Hemoglobin 9.1L, Hematocrit 29.9L , Mean Corpuscular Volume 86, Mean Corpuscular Hemoglobin 26.2L, Mean Corpuscular Hemoglobin Concent 30.5L, Red Cell Distribution Width 14.2, Platelet Count 215, Mean Platelet Volume 6.9, Neutrophils (%) (Auto) 83.4H, Lymphocytes (%) (Auto) 7.9L, Monocytes (%) (Auto) 7.9, Eosinophils (%) (Auto) 0.2, Basophils (%) (Auto) 0.7, Sodium Level 141, Potassium Level 4.7, Chloride Level 100, Carbon Dioxide Level 20, Anion Gap 21H, Blood Urea Nitrogen 78H, Creatinine 5.5H, Estimat Glomerular Filtration Rate 9.6, Glucose Level 141H, Calcium Level 9.0, Phosphorus Level 6.5H, Total Bilirubin 0.7, Aspartate Amino Transf (AST/SGOT) 35, Alanine Aminotransferase (ALT/SGPT) 20, Alkaline Phosphatase 125H, Total Protein 6.9, Albumin 2.3L, Globulin 4.6, Albumin/ Globulin Ratio 0.5L, Hepatitis B Surface Antigen [Pending], Hepatitis B Surface Antibody [Pending], Hepatitis C Antibody [Pending], HIV (1&2) Antibody Rapid Negative Height (Feet): 5 Height (Inches): 8.00 Weight (Pounds): 270 General Appearance: no apparent distress, alert, morbidly obese EENT: normal ENT inspection Neck: normal alignment Cardiovascular: normal rate, regular rhythm Respiratory/Chest: lungs clear Abdomen: soft Extremities: moderate edema, other - tophi 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
[2016-08-06] VITALS: BP 117/75
[2016-08-06] MEDS: Sodium Citrate 30ml ORAL SCH ×3 (00:26→12:00)
[2016-08-06] MEDS: Norco 10mg/325mg tab ORAL SCH ×6 (00:29→21:44)
[2016-08-06 04:00] VITALS: BP 131/80
[2016-08-06] MEDS: NovoLOG Insulin Flexpen SUBQ SCH ×4 (05:57→21:00)
[2016-08-06 08:00] VITALS: BP 127/67
[2016-08-06] MEDS: Heparin 5000 units/ml inj SUBQ SCH ×2 (09:00→21:45)
[2016-08-06] MEDS: Docusate 100mg tablet ORAL SCH ×2 (09:00→21:44)
[2016-08-06] MEDS: PredniSONE 5mg tab ORAL SCH (09:04)
[2016-08-06] MEDS: Aspirin Baby 81mg ORAL SCH (09:05)
[2016-08-06] MEDS: Nystatin Powder 100,000 units/gm 15gm TOPIC SCH ×3 (09:06→18:22)
[2016-08-06] MEDS ORDERED: Heparin Sod 1000 units/ml 10ml IV ONE (14:30)
[2016-08-06] MEDS ORDERED: Heparin Sod 1000 units/ml 10ml IV PRN ×2 (14:45→15:00)
--- NOTE | 2016-08-06 14:46 | Nephrology Progress Note ---
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 (7) UTI (urinary tract infection) (8) Metabolic acidosis (9) Metabolic encephalopathy Plan she agrees to start dialysis, stable on hd, needs psych eval and dc plan, trial of increased steroids for acute gout Subjective Constitutional: Reports: weakness HEENT: Reports: no symptoms Neurologic/Psychiatric: Reports: emotional problems Subjective chronic pain, some delusions Objective Objective Last 24 Hour Vital Signs Date Time Temp Pulse Resp B/P Pulse Ox O2 Delivery O2 Flow Rate FiO2 08/06/16 13:36 98.1 08/06/16 08:00 99.0 88 20 127/67 99 Room Air 08/06/16 04:00 98.1 108 20 131/80 100 Room Air 08/06/16 00:00 97.3 94 20 117/75 99 Room Air 08/05/16 20:00 97.9 110 18 118/90 100 Room Air 08/05/16 19:32 Room Air 08/05/16 16:00 97.0 88 16 101/69 95 Room Air Intake and Output 08/05/16 08/06/16 19:00 07:00 Intake Total 120 ml 790 ml Output Total 450 ml Balance 120 ml 340 ml Intake Oral 120 ml 440 ml Hemodialysis 350 ml Output Urine Total 450 ml # Voids 4 Height (Feet): 5 Height (Inches): 8.00 Weight (Pounds): 270 General Appearance: morbidly obese EENT: normal ENT inspection Neck: normal alignment Cardiovascular: normal rate Respiratory/Chest: lungs clear Abdomen: non tender Extremities: moderate edema 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
[2016-08-06 16:26] VITALS: BP 147/63
[2016-08-06] MEDS: PredniSONE 20mg tab ORAL SCH (17:44)
--- NOTE | 2016-08-06 18:51 | Wound Care Consultation ---
Wound Assessment Wound Assessment : Wound Number: #1 Wound Present on Admission: No New Wound: Yes Status Change of Wound: No Wound Location Body Site Modif: left Wound Location Body Site: heel Wound Type: pressure ulcer Marley Test: Does not Marley Pressure Ulcer Stage: deep tissue injury Wound Thickness: Full Thickness Wound Length: 4.0 Wound Width: 4.0 Wound Depth: utd Percent of Wound Purple/Maroon: 100 Wound Drainage Amount: None Wound Drainage Odor: None/Absent Tissue Surrounding Wound: Intact Wound General Appearance: Asymptomatic, Reddened - MAROON Wound Comment #1 Left heel deep tissue injury. Recommendation -Apply low air loss overlay SPR mattress for wound and skin management. -Turn and reposition. -Offload affected left heel site. -Keep clean and dry. -Heel protectors. -Optimize nutrition. -Assess and notify MD for any changes of condition. ANDREW ZAMBRANO Aug 06, 2016 18:51
[2016-08-06 20:00] VITALS: BP 119/69
--- NOTE | 2016-08-06 20:28 | Consultation ---
DATE OF CONSULTATION: HISTORY OF PRESENT ILLNESS: This is a 61-year-old female with a history of multiple medical problems including diabetes type 1, obesity, gout, arthritis, and chronic kidney disease stage V, and possible depression who has been admitted to the hospital for hyperkalemia, azotemia, and inability to walk, and medication noncompliant. During the evaluation, the patient has symptoms of depression, anxiety symptoms. However, she appears depressed, flat affect, and has anhedonia. The patient has been hallucinating and endorses persecutory delusions. She denied being noncompliant with medication. She has poor insight and judgment into her mental condition. PAST PSYCHIATRIC HISTORY: She denies any psychiatric hospitalization and taking any psych medication. No suicide attempts in the past. PAST MEDICAL HISTORY: Includes diabetes, hypertension, obesity, and history of anorexia. MEDICATIONS: Noncompliance. ALLERGIES: No known drug allergies. SUBSTANCE ABUSE HISTORY: No history of illicit drug use or alcohol. MENTAL STATUS EXAMINATION: The patient is alert and oriented x3. Mood is depressed. Affect is constricted. Congruent mood. Thought process is concrete. Thought content - no suicidal or homicidal ideation. Cognition is intact. ASSESSMENT: [place] I: Major depressive disorder. AXIS II: Deferred. AXIS II: As above. AXIS IV: Moderate to high. AXIS V: 55. PLAN: 1. I would recommend low-dose of anti-depressant like SSRIs, Wellbutrin. Risperdal 2mg po Qhs However, the patient is reluctant to take medications. 2. The patient is provided with reality orientation and supportive therapy. We will recommend the patient to go to therapy. However, the patient is limited due to medical issues and immobility. Re Coppola M.D. DR: FRANCISCO JOB#: [id number] CC: LADAN
[2016-08-06] MEDS: Levemir Flexpen SUBQ SCH (21:00)
--- NOTE | 2016-08-06 21:47 | General Progress Note ---
Assessment/Plan Problem List: (1) Toxic metabolic encephalopathy ICD Codes: G92 - Toxic encephalopathy SNOMED: 388652432 (2) severe pain,gout (3) Hyperkalemia ICD Codes: E87.5 - Hyperkalemia SNOMED: 88641191 (4) CKD (chronic kidney disease) stage 5, GFR less than 15 ml/min ICD Codes: N18.5 - Chronic kidney disease, stage 5 SNOMED: 556490414 (5) Metabolic acidosis ICD Codes: E87.2 - Acidosis SNOMED: 30360658 (6) UTI due to Klebsiella species ICD Codes: N39.0 - Urinary tract infection, site not specified; B96.1 - Klebsiella pneumoniae [K. pneumoniae] as the cause of diseases classified elsewhere SNOMED: 220154316704967 (7) Morbid obesity ICD Codes: E66.01 - Morbid (severe) obesity due to excess calories SNOMED: 796543241, 74499694053917 (8) Tophaceous gout ICD Codes: M1A.9XX1 - Tophaceous gout SNOMED: 35925598 (9) DM renal manif type II ICD Codes: E11.29 - DM renal manif type II SNOMED: 22473285 Assessment/Plan Appreciate nephrology rec's Pt has been initated on HD on 08/05 via her RUE AV fistula s/p cefepime on 08/04 Start cipro 250mg BID for UTI--will treat for total of 7 days for complicated UTI Cont insulin for DM2 Cont BP meds for HTN Cont prednisone for gout--may consider increasing dose ofr possible gout flare PT/OT Psych consulted given AMS CM consulted for SNF placement, outpatient dialysis setup DC planning DVT Prophylaxis: SCD, HSQ Code Status: Full Hospital Classification Declaration: Based on this initial evaluation, and depending on the patient's clinical course, I anticipate that this patient will require hospitalization for 1-2 days for HD per renal, AMS, and close respiratory/hemodynamic monitoring. Disposition: Once the patient is stable to leave the hospital, I anticipate the patient will likely be discharged to the following environment: SNF I spent 70 minutes on this patient's case, and 38 minutes were dedicated to counseling and/or care coordination. Discussed with patient/family, nursing staff, SW/CM regarding clinical status, treatment course, and disposition planning. Time of note may not reflect time of encounter. Subjective Date patient seen: Aug 06, 2016 Time patient seen: 21:47 ROS Limited/Unobtainable: No Constitutional: Reports: no symptoms HEENT: Reports: no symptoms Cardiovascular: Reports: no symptoms Respiratory: Reports: no symptoms Gastrointestinal/Abdominal: Reports: no symptoms Neurologic/Psychiatric: Reports: no symptoms Endocrine: Reports: no symptoms Hematologic/Lymphatic: Reports: no symptoms Allergies: Coded Allergies: ALLOPURINOL (Verified Allergy, Severe, rash,itching, 12/12/14) GABAPENTIN (Verified Allergy, Severe, rash,itching, 12/12/14) LISINOPRIL (Verified Allergy, Intermediate, Rash, 12/11/14) All Systems: reviewed and negative except above Objective Last 24 Hour Vital Signs Date Time Temp Pulse Resp B/P Pulse Ox O2 Delivery O2 Flow Rate FiO2 08/06/16 20:00 97.9 92 19 119/69 97 Room Air 08/06/16 18:44 98.1 08/06/16 16:26 98.1 105 20 147/63 99 Room Air 08/06/16 08:00 99.0 88 20 127/67 99 Room Air 08/06/16 04:00 98.1 108 20 131/80 100 Room Air 08/06/16 00:00 97.3 94 20 117/75 99 Room Air Intake and Output 08/05/16 08/06/16 19:00 07:00 Intake Total 120 ml 790 ml Output Total 450 ml Balance 120 ml 340 ml Intake Oral 120 ml 440 ml Hemodialysis 350 ml Output Urine Total 450 ml # Voids 4 Height (Feet): 5 Height (Inches): 8.00 Weight (Pounds): 270 Kameron Contreras M.D. Aug 06, 2016 21:47
[2016-08-07] VITALS (7 sets, daily range): BP systolic 121–157; BP diastolic 58–90
[2016-08-07] MEDS: Norco 10mg/325mg tab ORAL SCH ×6 (00:20→21:00)
[2016-08-07] MEDS: NovoLOG Insulin Flexpen SUBQ SCH ×4 (06:08→21:07)
[2016-08-07 06:58] LABS: MEAN CORPUSCULAR HGB CONC 30.2 G/DL (32.0-36.0); MEAN CORPUSCULAR VOLUME 86 FL (80-99); MEAN PLATELET VOLUME 6.2 FL (6.5-10.1); PLATELET COUNT 250 K/UL (150-450); RED BLOOD COUNT 2.95 M/UL (4.20-5.40); RED CELL DISTRIBUTION WIDTH 14.7 % (11.6-14.8); WHITE BLOOD COUNT 16.5 K/UL (4.8-10.8)
[2016-08-07 07:20] LABS: ALBUMIN/GLOBULIN RATIO 0.4 (1.0-2.7); CALCIUM 9.4 mg/dL (8.6-10.2); CREATININE 4.4 mg/dL (0.5-0.9); GLOMERULAR FILTRATION RATE 12.4 mL/min (>60); PHOSPHORUS 6.4 mg/dL (2.5-4.8); POTASSIUM 5.4 mEQ/L (3.4-4.9); TOTAL PROTEIN 6.1 g/dL (6.6-8.7)
[2016-08-07] MEDS: Aspirin Baby 81mg ORAL SCH (08:20)
[2016-08-07] MEDS: Docusate 100mg tablet ORAL SCH ×2 (08:20→21:03)
[2016-08-07] MEDS: Nystatin Powder 100,000 units/gm 15gm TOPIC SCH ×3 (08:21→18:42)
[2016-08-07] MEDS: PredniSONE 20mg tab ORAL SCH ×2 (08:21→18:41)
[2016-08-07] MEDS: Heparin 5000 units/ml inj SUBQ SCH ×2 (08:26→21:10)
[2016-08-07 10:00] LABS: ANISOCYTOSIS 1+; BAND NEUTROPHILS % (MANUAL) 4 % (0-8); BASOPHILS % (MANUAL) 0 % (0-2); EOSINOPHILS % (MANUAL) 2 % (0-3); HYPOCHROMASIA OCCASIONAL; LYMPHOCYTES % (MANUAL) 9 % (20-45); NEUTROPHILS % (MANUAL) 76 % (45-75); PLATELET ESTIMATE ADEQUATE; PLATELET MORPHOLOGY NORMAL; TOTAL CELLS COUNTED 100
[2016-08-07] MEDS: RisperiDONE 0.25mg tab ORAL SCH (18:42)
--- NOTE | 2016-08-07 19:15 | Nephrology Progress Note ---
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 (7) UTI (urinary tract infection) (8) Metabolic acidosis (9) Metabolic encephalopathy Plan she agrees to start dialysis, stable on hd, needs psych eval and dc plan, trial of increased steroids for acute gout Subjective Constitutional: Reports: weakness Genitourinary: Reports: incontinence Neurologic/Psychiatric: Reports: emotional problems, no symptoms Subjective chronic pain, some delusions Objective Objective Last 24 Hour Vital Signs Date Time Temp Pulse Resp B/P Pulse Ox O2 Delivery O2 Flow Rate FiO2 08/07/16 16:00 98.8 79 20 157/90 92 08/07/16 13:45 98.1 08/07/16 12:00 98.1 80 20 130/63 98 Room Air 08/07/16 08:00 98.1 87 20 121/58 100 Room Air 08/07/16 05:35 97.3 83 20 129/60 98 08/07/16 04:00 97.3 83 20 129/60 98 08/07/16 00:00 97.1 92 20 125/69 98 Room Air 08/06/16 20:00 97.9 92 19 119/69 97 Room Air Intake and Output 08/06/16 08/07/16 19:00 07:00 Intake Total 420 ml Output Total 250 ml 590 ml Balance -250 ml -170 ml Intake Oral 420 ml Output Urine Total 250 ml 590 ml Laboratory Tests 08/07/16 06:15: White Blood Count 16.5H, Red Blood Count 2.95L, Hemoglobin 7.7L, Hematocrit 25.3L, Mean Corpuscular Volume 86, Mean Corpuscular Hemoglobin 26.0L, Mean Corpuscular Hemoglobin Concent 30.2L, Red Cell Distribution Width 14.7, Platelet Count 250, Mean Platelet Volume 6.2L, Neutrophils (%) (Auto) , Lymphocytes (%) (Auto) , Monocytes (%) (Auto) , Eosinophils (%) (Auto) , Basophils (%) (Auto) , Differential Total Cells Counted 100, Neutrophils % ( Manual) 76H, Lymphocytes % (Manual) 9L, Monocytes % (Manual) 9, Eosinophils % ( Manual) 2, Basophils % (Manual) 0, Band Neutrophils 4, Platelet Estimate Adequate, Platelet Morphology Normal, Hypochromasia Occasional, Anisocytosis 1+ , Sodium Level 142, Potassium Level 5.4H, Chloride Level 101, Carbon Dioxide Level 17L, Anion Gap 24H, Blood Urea Nitrogen 79H, Creatinine 4.4H, Estimat Glomerular Filtration Rate 12.4, Glucose Level 181H, Calcium Level 9.4, Phosphorus Level 6.4H, Magnesium Level 1.9, Total Bilirubin 0.7, Aspartate Amino Transf (AST/SGOT) 25, Alanine Aminotransferase (ALT/SGPT) 15, Alkaline Phosphatase 120H, Total Protein 6.1L, Albumin 1.8L, Globulin 4.3, Albumin/ Globulin Ratio 0.4L Height (Feet): 5 Height (Inches): 8.00 Weight (Pounds): 270 General Appearance: morbidly obese EENT: normal ENT inspection Neck: normal alignment Cardiovascular: normal rate, regular rhythm, regularly irregular Respiratory/Chest: lungs clear Abdomen: soft Extremities: moderate edema 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 prednisone started for severe gout NEGRO SMITH Aug 07, 2016 19:15
[2016-08-07] MEDS: Epogen (for ESRD on dialysis) SUBQ SCH (21:04)
[2016-08-07] MEDS: Levemir Flexpen SUBQ SCH (21:06)
[2016-08-07] MEDS ORDERED: Furosemide 80mg tab ORAL SCH (21:10)
[2016-08-08] MEDS: Norco 10mg/325mg tab ORAL SCH ×5 (01:00→17:15)
[2016-08-08 04:00] VITALS: BP 126/66
[2016-08-08] MEDS: NovoLOG Insulin Flexpen SUBQ SCH ×4 (06:30→17:16)
--- NOTE | 2016-08-08 07:50 | General Progress Note ---
Assessment/Plan Problem List: (1) Toxic metabolic encephalopathy ICD Codes: G92 - Toxic encephalopathy SNOMED: 058367681 (2) severe pain,gout (3) Hyperkalemia ICD Codes: E87.5 - Hyperkalemia SNOMED: 50588698 (4) CKD (chronic kidney disease) stage 5, GFR less than 15 ml/min ICD Codes: N18.5 - Chronic kidney disease, stage 5 SNOMED: 891648801 (5) Metabolic acidosis ICD Codes: E87.2 - Acidosis SNOMED: 68554220 (6) UTI due to Klebsiella species ICD Codes: N39.0 - Urinary tract infection, site not specified; B96.1 - Klebsiella pneumoniae [K. pneumoniae] as the cause of diseases classified elsewhere SNOMED: 681125055563884 (7) Morbid obesity ICD Codes: E66.01 - Morbid (severe) obesity due to excess calories SNOMED: 881748112, 36149464651576 (8) Tophaceous gout ICD Codes: M1A.9XX1 - Tophaceous gout SNOMED: 18674559 (9) DM renal manif type II ICD Codes: E11.29 - DM renal manif type II SNOMED: 24226738 Status: stable Status Narrative Appreciate nephrology rec's Pt has been initated on HD on 08/05 via her RUE AV fistula s/p cefepime on 08/04 Start cipro 250mg BID for UTI--will treat for total of 7 days for complicated UTI Cont insulin for DM2 Cont BP meds for HTN Cont prednisone for gout--may consider increasing dose ofr possible gout flare PT/OT Psych consulted given AMS CM consulted for SNF placement, outpatient dialysis setup DC planning DVT Prophylaxis: SCD, HSQ Code Status: Full Hospital Classification Declaration: Based on this initial evaluation, and depending on the patient's clinical course, I anticipate that this patient will require hospitalization for 1-2 days for HD per renal, AMS, and close respiratory/hemodynamic monitoring. Disposition: Once the patient is stable to leave the hospital, I anticipate the patient will likely be discharged to the following environment: SNF I spent 70 minutes on this patient's case, and 38 minutes were dedicated to counseling and/or care coordination. Discussed with patient/family, nursing staff, SW/CM regarding clinical status, treatment course, and disposition planning. Time of note may not reflect time of encounter. Subjective Date patient seen: Aug 07, 2016 Time patient seen: 13:00 ROS Limited/Unobtainable: No Constitutional: Reports: no symptoms HEENT: Reports: no symptoms Cardiovascular: Reports: no symptoms Respiratory: Reports: no symptoms Gastrointestinal/Abdominal: Reports: no symptoms Genitourinary: Reports: no symptoms Neurologic/Psychiatric: Reports: no symptoms Endocrine: Reports: no symptoms Hematologic/Lymphatic: Reports: no symptoms Allergies: Coded Allergies: ALLOPURINOL (Verified Allergy, Severe, rash,itching, 12/12/14) GABAPENTIN (Verified Allergy, Severe, rash,itching, 12/12/14) LISINOPRIL (Verified Allergy, Intermediate, Rash, 12/11/14) Objective Last 24 Hour Vital Signs Date Time Temp Pulse Resp B/P Pulse Ox O2 Delivery O2 Flow Rate FiO2 08/08/16 04:00 97.0 75 17 126/66 97 Room Air 08/07/16 20:00 97.3 76 18 127/65 99 Room Air 08/07/16 19:40 97.3 08/07/16 16:00 98.8 79 20 157/90 92 08/07/16 12:00 98.1 80 20 130/63 98 Room Air 08/07/16 08:00 98.1 87 20 121/58 100 Room Air Intake and Output 08/07/16 08/08/16 19:00 07:00 Intake Total 950 ml 240 ml Output Total 175 ml 525 ml Balance 775 ml -285 ml Intake Oral 480 ml 240 ml Hemodialysis 470 ml Output Urine Total 175 ml 525 ml Height (Feet): 5 Height (Inches): 8.00 Weight (Pounds): 270 Kameron Contrersa M.D. Aug 08, 2016 07:49
[2016-08-08 08:00] VITALS: BP 127/76
[2016-08-08] MEDS ORDERED: Metolazone 5mg tab ORAL SCH (09:00)
[2016-08-08] MEDS: Docusate 100mg tablet ORAL SCH (09:00)
[2016-08-08 09:47] LABS: MEAN CORPUSCULAR HEMOGLOBIN 25.3 PG (27.0-31.0); MEAN CORPUSCULAR HGB CONC 29.5 G/DL (32.0-36.0); MEAN CORPUSCULAR VOLUME 86 FL (80-99); MEAN PLATELET VOLUME 6.5 FL (6.5-10.1); PLATELET COUNT 301 K/UL (150-450); RED BLOOD COUNT 3.13 M/UL (4.20-5.40); RED CELL DISTRIBUTION WIDTH 14.6 % (11.6-14.8); WHITE BLOOD COUNT 18.3 K/UL (4.8-10.8)
[2016-08-08 10:06] LABS: CALCIUM 9.5 mg/dL (8.6-10.2); CREATININE 4.4 mg/dL (0.5-0.9); GLOMERULAR FILTRATION RATE 12.4 mL/min (>60); PHOSPHORUS 6.8 mg/dL (2.5-4.8); POTASSIUM 5.2 mEQ/L (3.4-4.9)
[2016-08-08 10:16] LABS: ANISOCYTOSIS 1+; BAND NEUTROPHILS % (MANUAL) 4 % (0-8); BASOPHILS % (MANUAL) 0 % (0-2); EOSINOPHILS % (MANUAL) 0 % (0-3); HYPOCHROMASIA 1+; LYMPHOCYTES % (MANUAL) 6 % (20-45); NEUTROPHILS % (MANUAL) 85 % (45-75); PLATELET ESTIMATE ADEQUATE; PLATELET MORPHOLOGY NORMAL; TOTAL CELLS COUNTED 100
[2016-08-08 10:17] LABS: POLYCHROMASIA OCCASIONAL
[2016-08-08 11:38] VITALS: BP 133/77
[2016-08-08] MEDS: Furosemide 80mg tab ORAL SCH ×2 (12:09→18:59)
[2016-08-08] MEDS: PredniSONE 20mg tab ORAL SCH ×2 (12:10→19:00)
[2016-08-08] MEDS: RisperiDONE 0.25mg tab ORAL SCH ×2 (12:11→19:00)
[2016-08-08] MEDS: Heparin 5000 units/ml inj SUBQ SCH (12:15)
[2016-08-08] MEDS: Nystatin Powder 100,000 units/gm 15gm TOPIC SCH ×3 (12:15→18:09)
[2016-08-08] MEDS: Aspirin Baby 81mg ORAL SCH (12:18)
--- NOTE | 2016-08-08 13:45 | Discharge Instructions ---
Discharge Instructions Discharge Instructions Follow up with: PCP Call MD/Return to Hospital if: fevers/chills, chest pain, SOB Diet: 2 GM sodium (low sodium), cardiac 2 GM Na, low fat, renal diabetic Resume Normal Activity?: Yes Activity: resume normal activities For Congestive Heart Failure Reminder Report to your physician any weight gain of 5 pounds or more in one week. Kameron Contreras M.D. Aug 08, 2016 13:45
--- NOTE | 2016-08-08 14:20 | Nephrology Progress Note ---
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 (7) UTI (urinary tract infection) (8) Metabolic acidosis (9) Metabolic encephalopathy Plan she agrees to start dialysis, stable on hd, needs psych eval and dc plan, trial of increased steroids for acute gout--improved, can taper, lasix to control K, stable for dc, outpatient vasc surg eval of av fistula with stenosis Subjective Constitutional: Reports: weakness HEENT: Reports: no symptoms Genitourinary: Reports: incontinence Neurologic/Psychiatric: Reports: pre-existing deficit Subjective chronic pain, some delusions Objective Objective Last 24 Hour Vital Signs Date Time Temp Pulse Resp B/P Pulse Ox O2 Delivery O2 Flow Rate FiO2 08/08/16 11:38 98.2 90 18 133/77 99 Room Air 08/08/16 08:00 97.8 82 20 127/76 98 Room Air 08/08/16 04:00 97.0 75 17 126/66 97 Room Air 08/07/16 20:00 97.3 76 18 127/65 99 Room Air 08/07/16 19:40 97.3 08/07/16 16:00 98.8 79 20 157/90 92 Intake and Output 08/07/16 08/08/16 19:00 07:00 Intake Total 950 ml 240 ml Output Total 175 ml 525 ml Balance 775 ml -285 ml Intake Oral 480 ml 240 ml Hemodialysis 470 ml Output Urine Total 175 ml 525 ml Laboratory Tests 08/08/16 09:30: White Blood Count 18.3H, Red Blood Count 3.13L, Hemoglobin 7.9L, Hematocrit 26.9L, Mean Corpuscular Volume 86, Mean Corpuscular Hemoglobin 25.3L, Mean Corpuscular Hemoglobin Concent 29.5L, Red Cell Distribution Width 14.6, Platelet Count 301, Mean Platelet Volume 6.5, Neutrophils (%) (Auto) , Lymphocytes (%) (Auto) , Monocytes (%) (Auto) , Eosinophils (%) (Auto) , Basophils (%) (Auto) , Differential Total Cells Counted 100, Neutrophils % ( Manual) 85H, Lymphocytes % (Manual) 6L, Monocytes % (Manual) 5, Eosinophils % ( Manual) 0, Basophils % (Manual) 0, Band Neutrophils 4, Platelet Estimate Adequate, Platelet Morphology Normal, Polychromasia Occasional, Hypochromasia 1+ , Anisocytosis 1+, Sodium Level 139, Potassium Level 5.2H, Chloride Level 97L, Carbon Dioxide Level 17L, Anion Gap 25H, Blood Urea Nitrogen 99H, Creatinine 4.4H, Estimat Glomerular Filtration Rate 12.4, Glucose Level 265H, Calcium Level 9.5, Phosphorus Level 6.8H, Magnesium Level 2.0 Height (Feet): 5 Height (Inches): 8.00 Weight (Pounds): 270 General Appearance: no apparent distress, morbidly obese EENT: normal ENT inspection Neck: normal alignment Cardiovascular: normal rate, regular rhythm Respiratory/Chest: lungs clear Abdomen: non tender Extremities: moderate edema, other - tophi 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 prednisone started for severe gout NEGRO SMITH Aug 08, 2016 14:20
[2016-08-08 16:00] VITALS: BP 143/70
--- NOTE | 2016-08-11 08:02 | Discharge Summary ---
Discharge Summary Hospital Course Date of Admission Aug 01, 2016 at 18:57 Date of Discharge Aug 08, 2016 at 20:15 Admitting Diagnosis knee pain - not ambulatory HPI Ginette Garza is a 61 year old female who was admitted on Aug 01, 2016 at 18: 57 for Knee Pain - Not Ambulatory Hospital Course dc summary #[id number] Discharge Medications New Medications: Prednisone* (Prednisone*) 20 Mg Tablet 40 MG ORAL DAILY, #30 TAB Ciprofloxacin* (Ciprofloxacin*) 250 Mg Tablet 250 MG ORAL EVERY 12 HOURS, #10 TAB Epoetin Silvino (Procrit) 20,000 Unit/1 Ml Vial 25476 UNITS SUBQ MON-WED-FRI for 30 Days, VIAL Furosemide (Furosemide) 80 Mg Tablet 160 MG ORAL BID for 7 Days, TAB Insulin Detemir (Levemir Flexpen) 100 Unit/1 Ml Insuln.pen 20 UNITS SUBQ BEDTIME for 30 Days, EA Risperidone* (Risperdal*) 0.25 Mg Tablet 0.5 MG ORAL BID for 30 Days, TAB Continued Medications: Amlodipine Besylate* (Amlodipine Besylate*) 2.5 Mg Tablet 2.5 MG ORAL DAILY, TAB Aspirin* (Aspir 81*) 81 Mg Tablet.dr 81 MG ORAL DAILY, TAB Bysto (Bystolic) 10 Mg Tab 10 MG ORAL BID, TAB Calcitriol (Calcitriol*) 1 Mcg/1 Ml Ampul 1 MCG IV, MCG 0 Refills Docusate Sodium* (Colace*) 100 Mg Capsule 200 MG ORAL QID for Constipation, CAP Hydrocodone Bit/Acetaminophen 5-325* ([place] 5-325*) 1 Each Tablet 1 TAB ORAL Q4H PRN for moderate pain, TAB 0 Refills Hydrocodone/Acetaminophen (Hydrocodon-Acetaminophn 10-325) 1 Ea Tab 1 TAB ORAL Q4H PRN for For Pain, #0 TAB 0 Refills Insulin Lispro (Humalog) 100 Unit/1 Ml Cartridge 0 SUBQ, #1 UNITS 0 Refills Lactulose (Lactulose*) 20 Gm/30 Ml Solution 30 ML ORAL DAILY PRN for Constipation, ML 0 Refills Discontinued Medications: Insulin Glargine (Lantus) 5 Units Vial 0 SUBQ BEDTIME, #1 EA 0 Refills Losartan Potassium* (Losartan Potassium*) 25 Mg Tablet 25 MG ORAL DAILY, TAB Prednisone* (Prednisone*) 2.5 Mg Tablet 2.5 MG ORAL DAILY, #10 TAB 0 Refills Discharge Condition Upon Discharge: stable Discharge Disposition Patient was discharged to [facility] Discharge Diagnoses: Discharge Instructions Discharge Instructions Follow up with: PCP Call MD/Return to Hospital if: fevers/chills, chest pain, SOB Activity: resume normal activities Special Instructions I have been assigned to complete a D/C Summary on this account. I was not involved in the patient management Mohini Rothman NP ([place]) Aug 11, 2016 08:02
--- NOTE | 2016-08-11 10:30 | Discharge Summary 2 SIG ---
DATE OF ADMISSION: 08/01/2016 DATE OF DISCHARGE: 08/08/2016 REASON FOR ADMISSION: 61-year-old female with multiple chronic medical comorbidities, including diabetes insulin dependent since 1996, gout, arthritis, chronic kidney disease stage 5, and morbid obesity, presented with status post fall and inability to walk. Workup in the emergency room revealed azotemia and hyperkalemia. The patient was admitted for further management. ADMITTING DIAGNOSES: 1. Status post fall with recurrent falls 2. Hyperkalemia 3. Acute on chronic kidney disease stage V. 4. Severe osteoarthritis. 5. Morbid obesity. 6. Dehydration. 7. Gout. 8. Diabetes mellitus with diabetic nephropathy. 9. Pyuria likely urinary tract infection. 10. Failure to thrive. 11. Inability to ambulate HOSPITAL COURSE: The patient was admitted to the hospital. [employer] followed. initially with leukocytosis and anemia. Urine culture revealed Klebsiella . The patient was treated with IV antibiotics. The patient was placed on the IV fluids for hydration for volume depletion. Renal parameters were not improving. Decision was made to start the patient on hemodialysis. The patient agreed to have dialysis. She tolerated hemodialysis well. Psychiatry evaluation done. The patient was diagnosed with a major depression. Low dose of antidepressants as well as the Risperdal were added to existing regimen. Pain management provided for tophaceous gout as well as for osteoarthritis. Blood sugar was managed with long-acting Levemir and sliding scale of insulin as needed. Hemoglobin and hematocrit were closely monitored. The patient had anemia of chronic kidney disease, on Epogen. Blood pressure was managed with existing regimen and was stable. The trial of steroids was done. The patient responded to trial of steroids. Taper steroids in the half-way. Lasix was started for potassium control. Renal parameters and electrolytes were closely monitored and imbalances addressed and corrected. The patient was discharged to the correction facility. Outpatient follow up with the vascular surgeon for evaluation of AV fistula. Arterial duplex revealed right upper extremity AV shunt with severe stenosis in the proximal and mild stenosis in distal anastomotic sites. The patient was stable for discharge to the correction facility. DISCHARGE DIAGNOSES: 1. Acute on chronic kidney disease stage 5 requiring start of hemodialysis. 2. Hyperkalemia. 3. Intractable pain secondary to osteoarthritis and gout. 4. Tophaceous gout. 5. Diabetes mellitus type 2 with nephropathy. 6. Urinary tract infection/Klebsiella. 7. Metabolic encephalopathy, improved. 8. Anemia of chronic kidney disease. 9. Metabolic acidosis. 10. Major depression. 11. Hypertension. DISCHARGE MEDICATIONS: See medication reconciliation list. DISCHARGE INSTRUCTIONS: The patient discharged to the correction facility. Follow up with the outpatient hemodialysis as arranged. Follow up with the vascular surgeon for evaluation of AV fistula with stenosis. Sourav Wade M.D. I have been assigned to dictate discharge summary on this account and I was not involved in the patient's management. Mohini Mezaadriel N.PLayla DR: Abdullahi JOB#: [id number] CC: LADAN
--- NOTE | 2016-08-12 10:29 | Diagnostic Imaging Report ---
APPROVED REPORT CPT Code: 86489 Present Symptoms Comments: Swelling and pain Hx of upper arm hematoma RIGHT UPPER EXTREMITY: AVF: Imaging reveals patency of the brachial artery to basilic vein arterio-venous fistula at the upper arm level. However, elevated velocities indicate anastomotic site. The venous outflow is widely patent. There is no evidence of pseudo-aneurysm. A hematoma measuring 4.1 cm x 2.9 cm is noted at the upper arm level. A large amount of edema also noted. Proximal brachial artery: 112 cm/s Proximal anastomosis: 1.6 mm, 600 cm/s Mid AVF: 4.3 mm, 174 cm/s Distal anastomosis: 3.5 mm, 230 cm/s Brachial artery: distal 102 cm/s RIGHT UPPER EXTREMITY: Imaging reveals patency of the internal jugular, subclavian, axillary and brachial veins. The Doppler indicates normal spontaneous flow within these venous segments. There is no evidence of acute deep vein thrombosis.
== END 2016-08-08 20:15 | DRG 682 ==
LOC: EDBD 18:07 → EMR 18:53 → 3E 18:57 → EDBEDREQ 08-02 07:43 → 3E 08-02 16:55 → UNDOADMIN 08-02 16:55 → 3E 08-02 17:33
PROC: 5A1D60Z (ICD-10-PCS; principal; 2016-08-05)
DX: N17.9 Acute kidney failure, unspecified (principal); G93.41 Metabolic encephalopathy; E87.2 Acidosis; E11.21 Type 2 diabetes mellitus with diabetic nephropathy; I12.0 Hypertensive chronic kidney disease with stage 5 chronic kidney disease or end stage renal disease; N39.0 Urinary tract infection, site not specified; Z68.43 Body mass index [BMI] 50.0-59.9, adult; E87.5 Hyperkalemia; Z91.81 History of falling; M19.90 Unspecified osteoarthritis, unspecified site; E86.0 Dehydration; R62.7 Adult failure to thrive; Z79.4 Long term (current) use of insulin; R26.2 Difficulty in walking, not elsewhere classified; N18.5 Chronic kidney disease, stage 5; E66.01 Morbid (severe) obesity due to excess calories; B96.1 Klebsiella pneumoniae [K. pneumoniae] as the cause of diseases classified elsewhere; F32.9 Major depressive disorder, single episode, unspecified; M1A.9XX1 Chronic gout, unspecified, with tophus (tophi); D63.1 Anemia in chronic kidney disease; Z60.2 Problems related to living alone; Z88.8 Allergy status to other drugs, medicaments and biological substances; M25.562 Pain in left knee; M25.561 Pain in right knee; R27.8 Other lack of coordination; R23.8 Other skin changes
CPT/HCPCS: 36415; 71010; 80048; 80053; 81003; 82728; 82962; 83540; 83550; 83735; 84100; 84550; 85007; 85025; 85610; 85651; 85730; 86703; 86803; 87086; 87181; 87340; 87517; 93005; 93971; J1815; J2405; S5561